=== PATIENT | male | born 1995 | race Caucasian/White ===

== ENCOUNTER 2018-06-07 16:41 | Emergency (ER) | payer OTHER ==
[~2018-06-07] VITALS: Ht 182.9 cm; Wt 66.1 kg
[2018-06-07 16:45] VITALS: Ht 182.9 cm; Wt 66.1 kg
[2018-06-07] MEDS ORDERED: DICYCLOMINE HCL 20 MG TAB PO STA (16:58)
[2018-06-07] MEDS ORDERED: SODIUM CHLORIDE 0.9% 1000ML 1,000 ML IV STA (16:58)
[2018-06-07] MEDS ORDERED: ACETAMINOPHEN 500 MG TAB PO STA (17:00)
[2018-06-07] MEDS ORDERED: DICYCLOMINE HCL 10 MG CAP ONE (17:04)
--- NOTE | 2018-06-07 17:15 | EMERGENCY ROOM VISIT NOTE ---
History Report prepared by Tisha: Rodrigo Willett Under the Supervision of: Dr. Pepper Yates D.O. First contact with patient: 16:48 Chief Complaint: FEVER Stated Complaint: FEVER 101.2 History of Present Illness The patient is a 22 year old male who presents to the Emergency Room with complaints of an intermittent fever and diarrhea beginning this morning. The patient states he woke up this morning with a temperature of 100 F. He reports he took DayQuil, and it lowered his temperature to 97 F. The patient notes an hour later his fever was back to 100. He states his fever continued to rise to 101.2 F. The patient reports he also had painful (3/10) diarrhea today. He notes it felt like it was acidic, and he had 3 maybe 4 episodes today. No black or bloody stools. He patient states his bowel movements were normal yesterday. He reports he has also had abdominal cramping without abdominal pain. The patient notes his cramps will start while he is having diarrhea and resolve a few minutes after his episode. He states his abdomen feels fine until he has another episode of diarrhea. The patient reports he is dizzy and lightheaded after he stands up from sitting down. He notes he went out last night and drank alcohol. The patient states he is still able to eat and ate waffles, Eggs [place], and ham for breakfast today. He reports he felt stuffed after that. The patient notes he was around a sick person at his mom's work last week. He denies blood with diarrhea, a history of bowel/intestinal trouble, recent travel , recent camping, recent stream water use, eating undercooked foods, rashes, sores, cough, cold symptoms, chest pain, trouble urinating, pertinent past medical history, and current nausea. Source of History: patient Onset: this morning Symptom Intensity: 101.2 Quality: other (fever) Timing: intermittent Modifying Factors (Relieving): other (DayQuil) Associated Symptoms: + diarrhea, No cough, No chest pain, No nausea, No rash Note: Associated symptoms: abdominal cramping, dizziness, lightheadedness Denies: blood with diarrhea, a history of bowel/intestinal trouble, recent travel, recent camping, recent stream water use, eating undercooked foods, sores , cold symptoms, trouble urinating, pertinent past medical history Review of Systems See HPI for pertinent positives & negatives. A total of 10 systems reviewed and were otherwise negative. Past Medical & Surgical Medical Problems: (1) No Known Active Medical Problems Family History Patient reports no known family medical history. Social History Smoking Status: Current Some Day Smoker Alcohol Use: occasionally Marital Status: single Occupation Status: [employer] student Current/Historical Medications No Active Prescriptions or Reported Meds Allergies Uncoded Allergies: SWISS SPICES (Allergy, Unknown, HIVES & VOMITING, 06/08/18) Physical Exam Vital Signs Date Time Temp Pulse Resp B/P (MAP) Pulse Ox O2 Delivery O2 Flow Rate FiO2 06/07/18 18:54 36.9 86 16 97/59 97 06/07/18 17:57 98 16 118/50 99 Room Air 06/07/18 17:57 37.4 06/07/18 16:45 38.3 111 18 122/69 98 Room Air Physical Exam GENERAL: alert, anxious appearing, well nourished, no distress, non-toxic. EYE EXAM: normal conjunctiva, PERRL and EOM's grossly intact OROPHARYNX: no exudate, no erythema, lips, buccal mucosa, and tongue normal and mucous membranes are moist NECK: supple, no nuchal rigidity, no adenopathy, non-tender LUNGS: Clear to auscultation. Normal chest wall mechanics HEART: no murmurs, S1 normal and S2 normal ABDOMEN: abdomen soft, non-tender, normo-active bowel sounds, no masses, no rebound or guarding. BACK: Back is symmetrical on inspection and there is no deformity, no midline tenderness, no CVA tenderness. SKIN: no rashes and no bruising, no petechiae or purpura UPPER EXTREMITIES: upper extremities are grossly normal. Full range of motion, normal pulses. LOWER EXTREMITIES: No pitting edema. Full range of motion, normal pulses. NEURO EXAM: Normal sensorium, cranial nerves II-XII grossly intact, normal speech, no gross weakness of arms, no gross weakness of legs. Medical Decision & Procedures ER Provider Diagnostic Interpretation: Radiology results have been interpreted by the radiologist and reviewed by me. ABDOMEN 2VIEW W/PA CHEST RTN CLINICAL HISTORY: diarrhea, abd pain COMPARISON STUDY: No previous studies for comparison. FINDINGS: The erect chest reveals no evidence of free air. There is no evidence of focal pulmonary consolidation.] A left perihilar density, likely represents either a vessel on end or granuloma. Erect and supine views of the abdomen reveal no abnormally dilated loops of large or small bowel. There are no transition zone to indicate bowel obstruction. IMPRESSION: No evidence of bowel obstruction. No evidence of free air. Electronically signed by: Tad Lentz M.D. 06/07/2018 5:35 PM Dictated Date/Time: 06/07/2018 5:34 PM Laboratory Results 06/07/18 17:10 Red Blood Count 5.06, Mean Corpuscular Volume 88.1, Mean Corpuscular Hemoglobin 30.6, Mean Corpuscular Hemoglobin Concent 34.8, Mean Platelet Volume 10.0, Neutrophils (%) (Auto) 86.6, Lymphocytes (%) (Auto) 4.2, Monocytes (%) (Auto) 8.9, Eosinophils (%) (Auto) 0.0, Basophils (%) (Auto) 0.1, Neutrophils # (Auto) 10.85, Lymphocytes # (Auto) 0.53, Monocytes # (Auto) 1.12, Eosinophils # (Auto) 0.00, Basophils # (Auto) 0.01 06/07/18 17:10 Test 06/07/18 17:10 White Blood Count 12.53 K/uL (4.8-10.8) Red Blood Count 5.06 M/uL (4.7-6.1) Hemoglobin 15.5 g/dL (14.0-18.0) Hematocrit 44.6 % (42-52) Mean Corpuscular Volume 88.1 fL (80-100) Mean Corpuscular Hemoglobin 30.6 pg (25-34) Mean Corpuscular Hemoglobin Concent 34.8 g/dl (32-36) Platelet Count 153 K/uL (130-400) Mean Platelet Volume 10.0 fL (7.4-10.4) Neutrophils (%) (Auto) 86.6 % Lymphocytes (%) (Auto) 4.2 % Monocytes (%) (Auto) 8.9 % Eosinophils (%) (Auto) 0.0 % Basophils (%) (Auto) 0.1 % Neutrophils # (Auto) 10.85 K/uL (1.4-6.5) Lymphocytes # (Auto) 0.53 K/uL (1.2-3.4) Monocytes # (Auto) 1.12 K/uL (0.11-0.59) Eosinophils # (Auto) 0.00 K/uL (0-0.5) Basophils # (Auto) 0.01 K/uL (0-0.2) RDW Standard Deviation 43.1 fL (36.4-46.3) RDW Coefficient of Variation 13.4 % (11.5-14.5) Immature Granulocyte % (Auto) 0.2 % Immature Granulocyte # (Auto) 0.02 K/uL (0.00-0.02) Anion Gap 9.0 mmol/L (3-11) Est Creatinine Clear Calc Drug Dose 107.0 ml/min Estimated GFR () 120.6 Estimated GFR (Non- 104.1 BUN/Creatinine Ratio 10.7 (10-20) Calcium Level 8.5 mg/dl (8.5-10.1) Magnesium Level 1.9 mg/dl (1.8-2.4) Total Bilirubin 0.7 mg/dl (0.2-1) Aspartate Amino Transf (AST/SGOT) 17 U/L (15-37) Alanine Aminotransferase (ALT/SGPT) 18 U/L (12-78) Alkaline Phosphatase 89 U/L (45-117) Total Protein 7.9 gm/dl (6.4-8.2) Albumin 4.1 gm/dl (3.4-5.0) Globulin 3.8 gm/dl (2.5-4.0) Albumin/Globulin Ratio 1.1 (0.9-2) Lipase 93 U/L (73-393) Laboratory results per my review. Medications Administered Medications (Trade) Dose Ordered Sig/Rigoberto Route Start Time Stop Time Status Last Admin Dose Admin Sodium Chloride 1,000 ml @ 999 mls/hr Q1H1M STAT IV 06/07/18 16:58 06/07/18 17:58 DC 06/07/18 17:15 999 MLS/HR Acetaminophen (Tylenol Tab) 1,000 mg NOW STAT PO 06/07/18 17:00 06/07/18 17:01 DC 06/07/18 17:16 1,000 MG Dicyclomine HCl (Bentyl Cap) 20 mg STK-MED ONCE .ROUTE 06/07/18 17:04 06/07/18 17:05 DC 06/07/18 17:16 20 MG Dicyclomine HCl (Dicyclomine HCl 10MG Home Pack) 1 ea UD ONCE PO 06/07/18 18:45 06/07/18 18:46 DC 06/07/18 18:43 1 EA ED Course 1650: The patient was evaluated in room A12B. A complete history and physical exam was performed. 1658: Ordered Sodium Chloride 1000 ml @ 999 mls/hr IV 1700: Ordered Tylenol 1000mg PO 1704: Ordered Bentyl Cap 20mg .ROUTE 1819: Upon reevaluation, the patient is feeling better. I discussed the findings and the treatment plan with the patient. He verbalizes agreement and understanding. The patient will be discharged home after he receives his homepack. 184: Ordered Dicyclomine HCl 1ea PO Medical Decision Differential diagnosis: Etiologies such as viral syndrome, otitis, pharyngitis, pneumonia, influenza, meningitis, urinary tract infection, sepsis, bacteremia, as well as others were entertained. Patient well-appearing here despite complaints. Fever and abdominal cramping improved. Patient rechecked multiple times. Patient had no recurrences of diarrhea while in the emergency department. Patient's labs and imaging reassuring, patient hemodynamically stable throughout. Patient with no significant risk factors for other occult infectious etiology such as travel, medications, or immune compromise status. Discussed with patient possible viral syndrome versus foodborne illness. Discussed with patient use medications to control fever, patient given a home pack of Bentyl to help with cramping, encouraged adequate hydration, and bland diet until he is feeling better. Discussed avoidance of alcohol until he is feeling better. Discussed with him symptoms to watch and return for. Advised him that stool cultures will take 1-2 days to grow out and if they are abnormal he will receive a phone call. Patient verbalized understanding of all this and was in agreement with plan, anxious to be discharged. Do not feel patient warranted additional imaging or GI evaluation at this time. Patient's abdomen soft and nontender throughout. Medication Reconcilliation Current Medication List: was personally reviewed by me Blood Pressure Screening Patient's blood pressure: Normal blood pressure Blood pressure disposition: Did not require urgent referral Impression Primary Impression: Fever Additional Impression: Diarrhea Scribe Attestation The scribe's documentation has been prepared under my direction and personally reviewed by me in its entirety. I confirm that the note above accurately reflects all work, treatment, procedures, and medical decision making performed by me. Departure Information Dispostion Home / Self-Care Prescriptions No Active Prescriptions or Reported Meds Referrals No Doctor, Assigned (PCP) Forms HOME CARE DOCUMENTATION FORM, IMPORTANT VISIT INFORMATION Patient Instructions [facility] Additional Instructions Please drink plenty of water to stay well-hydrated, you may also drink Gatorade/ Powerade. Please avoid juice, coffee, soda until you are feeling better. If you develop increasing or persistent abdominal pain, worsening more frequent diarrhea, black or bloody stools, nausea or vomiting, fevers that do not respond to Tylenol or ibuprofen, dizziness or passing out, you have any other new concerns, please return the emergency room. You may use Tylenol and ibuprofen for your fevers. Do not take ibuprofen on an empty stomach and please make sure you are well-hydrated. Your stool culture here will take a day or 2 to result. If it is abnormal you will be called with an update. Problem Qualifiers Primary Impression: Fever Fever type: unspecified Qualified Codes: R50.9 - Fever, unspecified Additional Impression: Diarrhea Diarrhea type: unspecified type Qualified Codes: R19.7 - Diarrhea, unspecified
[2018-06-07 17:20] LABS: BASO % 0.1 %; BASO ABS # 0.01 K/uL (0-0.2); HEMATOCRIT 44.6 % (42-52); HEMOGLOBIN 15.5 g/dL (14.0-18.0); IG# 0.02 K/uL (0.00-0.02); LYMPH % 4.2 %; LYMPH ABS # 0.53 K/uL (1.2-3.4); MEAN CELL VOLUME 88.1 fL (80-100); MEAN CORPUSCULAR HEMOGLOBIN 30.6 pg (25-34); MEAN CORPUSCULAR HGB CONC 34.8 g/dl (32-36); MONO % 8.9 %; MONO ABS # 1.12 K/uL (0.11-0.59); NEUT % 86.6 %; NEUT ABS # 10.85 K/uL (1.4-6.5); PLATELET COUNT 153 K/uL (130-400); RED CELL DISTRIBUTION WIDTH CV 13.4 % (11.5-14.5); RED CELL DISTRIBUTION WIDTH SD 43.1 fL (36.4-46.3); WHITE BLOOD COUNT 12.53 K/uL (4.8-10.8)
--- NOTE | 2018-06-07 17:37 | DIAGNOSTIC IMAGING REPORT ---
ABDOMEN 2VIEW W/PA CHEST RTN CLINICAL HISTORY: diarrhea, abd pain COMPARISON STUDY: No previous studies for comparison. FINDINGS: The erect chest reveals no evidence of free air. There is no evidence of focal pulmonary consolidation.] A left perihilar density, likely represents either a vessel on end or granuloma. Erect and supine views of the abdomen reveal no abnormally dilated loops of large or small bowel. There are no transition zone to indicate bowel obstruction. IMPRESSION: No evidence of bowel obstruction. No evidence of free air. Electronically signed by: Tad Lentz M.D. 06/07/2018 5:35 PM Dictated Date/Time: 06/07/2018 5:34 PM
[2018-06-07 17:40] LABS: ALBUMIN 4.1 gm/dl (3.4-5.0); CALCIUM 8.5 mg/dl (8.5-10.1); CREATININE 1.03 mg/dl (0.60-1.40); POTASSIUM 3.7 mmol/L (3.5-5.1); TOTAL PROTEIN 7.9 gm/dl (6.4-8.2)
[2018-06-07] MEDS ORDERED: BENTYL HOME PACK 10 MG VIAL PO ONE (18:45)
[2018-06-07 18:54] VITALS: BP 97/59; PULSE 86; TEMP 36.9; O2SAT 97
--- NOTE | 2018-06-09 20:14 | Pharmacy Progress Note ---
ED Pharmacist Culture FollowUp Date of Service: Jun 09, 2018. Campylobacter jejuni isolated from stool culture. Patient was seen again after this visit for this indication - no antibiotics prescribed which is appropriate for non-severe cases. Called patient who reports improvement in symptoms. No further intervention required at this time. Case discussed w Dr. Parra.
== END 2018-06-07 18:56 | disposition home or self-care (01) ==
LOC: C.EDB 16:42 → C.EDA 18:56
DX: R50.9 Fever, unspecified (principal); R19.7 Diarrhea, unspecified; F17.200 Nicotine dependence, unspecified, uncomplicated; Z91.018 Allergy to other foods

== ENCOUNTER 2018-06-08 10:38 | Emergency (ER) | payer OTHER ==
[~2018-06-08] VITALS: Ht 182.9 cm; Wt 66.0 kg
[2018-06-08 10:43] VITALS: Ht 182.9 cm; Wt 66.0 kg
[2018-06-08 11:32] LABS: BASO % 0.1 %; BASO ABS # 0.01 K/uL (0-0.2); HEMATOCRIT 40.8 % (42-52); HEMOGLOBIN 14.4 g/dL (14.0-18.0); IG# 0.05 K/uL (0.00-0.02); LYMPH % 4.4 %; LYMPH ABS # 0.56 K/uL (1.2-3.4); MEAN CELL VOLUME 88.3 fL (80-100); MEAN CORPUSCULAR HEMOGLOBIN 31.2 pg (25-34); MEAN CORPUSCULAR HGB CONC 35.3 g/dl (32-36); MEAN PLATELET VOLUME 10.2 fL (7.4-10.4); MONO % 7.7 %; MONO ABS # 0.98 K/uL (0.11-0.59); NEUT % 87.4 %; PLATELET COUNT 141 K/uL (130-400); RED CELL DISTRIBUTION WIDTH CV 13.3 % (11.5-14.5); RED CELL DISTRIBUTION WIDTH SD 43.6 fL (36.4-46.3)
[2018-06-08 11:51] LABS: ALBUMIN 3.6 gm/dl (3.4-5.0); CALCIUM 8.4 mg/dl (8.5-10.1); CREATININE 1.03 mg/dl (0.60-1.40); POTASSIUM 3.4 mmol/L (3.5-5.1); TOTAL PROTEIN 7.3 gm/dl (6.4-8.2)
[2018-06-08 12:51] VITALS: BP 120/78; PULSE 90; TEMP 36.5; O2SAT 100
--- NOTE | 2018-06-11 17:44 | EMERGENCY ROOM VISIT NOTE ---
History First contact with patient: 11:03 Chief Complaint: FEVER Stated Complaint: FEVER History of Present Illness The patient is a 22 year old male who presents to the Emergency Room with complaints of persisting fever. He also states that his diarrhea persists. He had one episode overnight and 3 this morning. He was seen here yesterday for fever and diarrhea. He was able to give a sample at that time. He was told to return if symptoms became worse. He states he took his temperature this morning at home and it was 102. He did take some ibuprofen and now his temperature is normal. He denies any chills or sweats. No nausea or vomiting. No abdominal pain. No dysuria. No upper respiratory symptoms. No cough or shortness of breath. No other complaints. A female friend accompanies him today. Review of Systems REVIEW OF SYSTEM: HEENT: No dizziness, visual problems, hearing loss, or tinnitus. There is no difficulty swallowing and no oral lesions are present. PULMONARY: No cough, shortness of breath, sputum production or hemoptysis. CARDIOVASCULAR: No chest pain, palpitations, shortness of breath or peripheral edema. GASTROINTESTINAL: No diarrhea, constipation, nausea, vomiting, or abdominal pain. GENITOURINARY: No dysuria, frequency, urgency or nocturia. NEUROLOGIC: No weakness, muscle tenderness, epilepsy or history of neurological problems. MUSCULOSKELETAL: No history of joint tenderness/swelling. No history of arthritis or arthralgias. SKIN: No rashes or lesions. PSYCHIATRIC: No history of depression or mental illness. ENDOCRINE: No history of diabetes, thyroid disorders, or abnormal hair growth. Past Medical/Surgical History Medical Problems: (1) No Known Active Medical Problems Family History Patient reports no known family medical history. Social History Smoking Status: Former Smoker Smokeless Tobacco Use: No Alcohol Use: occasionally Marital Status: single Housing Status: lives with roommate Occupation Status: [employer] student Current/Historical Medications No Active Prescriptions or Reported Meds Physical Exam Vital Signs Date Time Temp Pulse Resp B/P (MAP) Pulse Ox O2 Delivery O2 Flow Rate FiO2 06/08/18 12:51 36.5 90 20 120/78 100 06/08/18 10:43 36.8 92 20 118/72 100 Room Air Physical Exam General: Well-developed, well-nourished, young white male, in no acute distress. Sitting on the bed. Alert and oriented. Skin: Warm and dry with good turgor. No rashes or lesions. No ecchymosis or erythema. The patient is not diaphoretic. No abrasions. HEENT: Normocephalic atraumatic. Eyes PERRLA, EOMI. No conjunctiva or scleral injection. Ears TMs intact bilaterally with good light reflexes. No erythema or bulging. No hemotympanum. Canals are patent. Nares patent bilaterally without turbinate enlargement. No significant drainage. No epistaxis. Oropharynx without erythema or exudate. Uvula midline, oral mucosa moist. No lesions present. Lymphatics are palpated without anterior or posterior chain enlargement or tenderness. Heart: Heart RRR. No MGR. Peripheral pulses are 2+. Lungs: Lungs are clear to auscultation. No crackles rhonchi or wheezing. Good air movement. The patient is able to take a deep breath. Abdomen: Abdomen was inspected, auscultated, and palpated. Bowel sounds present x 4. Soft, nontender to palpation. No hepato-splenomegaly. No masses noted. No rebound. No CVA tenderness. Musculoskeletal: Gross motor function of the upper and lower extremities Medical Decision & Procedures Laboratory Results 06/08/18 11:23 Red Blood Count 4.62, Mean Corpuscular Volume 88.3, Mean Corpuscular Hemoglobin 31.2, Mean Corpuscular Hemoglobin Concent 35.3, Mean Platelet Volume 10.2, Neutrophils (%) (Auto) 87.4, Lymphocytes (%) (Auto) 4.4, Monocytes (%) (Auto) 7.7, Eosinophils (%) (Auto) 0.0, Basophils (%) (Auto) 0.1, Neutrophils # (Auto) 11.10, Lymphocytes # (Auto) 0.56, Monocytes # (Auto) 0.98, Eosinophils # (Auto) 0.00, Basophils # (Auto) 0.01 06/08/18 11:23 Test 06/08/18 11:23 White Blood Count 12.70 K/uL (4.8-10.8) Red Blood Count 4.62 M/uL (4.7-6.1) Hemoglobin 14.4 g/dL (14.0-18.0) Hematocrit 40.8 % (42-52) Mean Corpuscular Volume 88.3 fL (80-100) Mean Corpuscular Hemoglobin 31.2 pg (25-34) Mean Corpuscular Hemoglobin Concent 35.3 g/dl (32-36) Platelet Count 141 K/uL (130-400) Mean Platelet Volume 10.2 fL (7.4-10.4) Neutrophils (%) (Auto) 87.4 % Lymphocytes (%) (Auto) 4.4 % Monocytes (%) (Auto) 7.7 % Eosinophils (%) (Auto) 0.0 % Basophils (%) (Auto) 0.1 % Neutrophils # (Auto) 11.10 K/uL (1.4-6.5) Lymphocytes # (Auto) 0.56 K/uL (1.2-3.4) Monocytes # (Auto) 0.98 K/uL (0.11-0.59) Eosinophils # (Auto) 0.00 K/uL (0-0.5) Basophils # (Auto) 0.01 K/uL (0-0.2) RDW Standard Deviation 43.6 fL (36.4-46.3) RDW Coefficient of Variation 13.3 % (11.5-14.5) Immature Granulocyte % (Auto) 0.4 % Immature Granulocyte # (Auto) 0.05 K/uL (0.00-0.02) Anion Gap 11.0 mmol/L (3-11) Est Creatinine Clear Calc Drug Dose 106.8 ml/min Estimated GFR () 120.6 Estimated GFR (Non- 104.1 BUN/Creatinine Ratio 7.8 (10-20) Calcium Level 8.4 mg/dl (8.5-10.1) Total Bilirubin 0.5 mg/dl (0.2-1) Aspartate Amino Transf (AST/SGOT) 12 U/L (15-37) Alanine Aminotransferase (ALT/SGPT) 15 U/L (12-78) Alkaline Phosphatase 77 U/L (45-117) Total Protein 7.3 gm/dl (6.4-8.2) Albumin 3.6 gm/dl (3.4-5.0) Globulin 3.7 gm/dl (2.5-4.0) Albumin/Globulin Ratio 1.0 (0.9-2) CBC and chemistry panel were obtained today. He continues to have a mild elevation in white count at 12.7. Slightly low potassium at 3.4. Otherwise unremarkable. ED Course Patient was educated regarding today's findings. Conservative care measures were discussed. Cultures from his previous visit were positive for Campylobacter. He is a young healthy male without other comorbidities. He was reassured that this will pass without antibiotics. Maintain hydration. I did ask that he increase potassium rich foods in his diet. Increase diet as able. Start Imodium after every loose stool. Return to the ED for any acute changes or follow-up with [facility]. Diarrhea handout was provided. Medical Decision Possibility of diverticulitis, viral gastroenteritis, Giardia, Campylobacter, Salmonella, irritable bowel syndrome, and non-bowel source for his fever were considered among others. Medication Reconcilliation Current Medication List: was personally reviewed by me Blood Pressure Screening Patient's blood pressure: Normal blood pressure Impression Primary Impression: Campylobacter diarrhea Departure Information Dispostion Home / Self-Care Condition GOOD Prescriptions No Active Prescriptions or Reported Meds Forms DIET INSTRUCTION CL LIQUIDS, HOME CARE DOCUMENTATION FORM, IMPORTANT VISIT INFORMATION Patient Instructions Diarrhea , [facility] Additional Instructions Maintain hydration-Gatorade may help Add a banana to your diet daily Limit greasy or spicy foods This should pass in another 3-5 days Imodium after every loose stool may help decrease the diarrhea episodes Return to the ED for any other concerns or follow-up with [facility]
== END 2018-06-08 12:52 | disposition home or self-care (01) ==
LOC: C.EDB 10:40 → C.EDC 12:52
DX: A04.5 Campylobacter enteritis (principal); E87.6 Hypokalemia; Z87.891 Personal history of nicotine dependence